=== PATIENT | female | born 1965 | race Caucasian/White ===

== ENCOUNTER 2018-06-22 18:06 | Emergency (ER) | payer SELFPAY ==
[2018-06-22] MEDS: ONDANSETRON (ODT) 4 MG TAB ODT (19:18)
[2018-06-22] MEDS: HYDROmorphONE 2 MG TAB PO (19:18)
== END 2018-06-22 19:29 | disposition home or self-care (01) ==
LOC: FTE 18:06
DX: R51 Headache (principal)
CPT/HCPCS: 99283